=== PATIENT | male | born 1970 | race American Indian/Alaskan Native ===

== ENCOUNTER 2017-07-14 14:44 | Emergency (ER) | payer BC ==
[2017-07-14 16:04] VITALS: BP 130/88
[2017-07-14] MEDS ORDERED: NORCO 5/325 PO ONE (19:58)
[2017-07-14] MEDS ORDERED: FLEXERIL PO ONE (19:58)
--- NOTE | 2017-07-14 20:51 | XRay Report ---
FINAL REPORT PROCEDURE: XR FINGER(S) 2+V RT TECHNIQUE: Left 2nd finger, three views HISTORY: laceration, finger pain COMPARISON: No prior studies are available for comparison. FINDINGS: No fracture or dislocation is seen. No focal osseous lesion is identified. No radiopaque foreign body. IMPRESSION: No fracture or joint dislocation is identified
--- NOTE | 2017-07-14 22:33 | Emergency Department Report ---
- General Chief Complaint: Wound/Laceration Stated Complaint: RIGHT FINGER INJURY Source: patient Mode of arrival: Ambulatory Limitations: No Limitations - History of Present Illness Initial Comments: 46 year old male presents to ED with right 1st finger pain after window was closed on finger. patient has superficial lacerations/abrasions to right distal finger. patient states his tetanus is up to date. patient is stable, neurologically intact and in no acute distress. -: Sudden Location: other (right finger) Extremity Location: Right: Hand (right index finger) Patient Tetanus UTD: Yes Context: accidental Associated Symptoms: pain. denies: loss of feeling/numbness, suspect foreign body present, unable to move injured part, weakness followed by dizziness, nausea/vomiting, fever - Related Data Previous Rx's Medication Instructions Recorded Last Taken Type HYDROcodone/APAP 5-325 [[place] 1 - 2 each PO Q6HR PRN #10 tablet 05/08/15 Unknown Rx 5-325 mg TAB] traMADol [Ultram 50 MG tab] 50 mg PO Q6HR PRN #16 tablet 05/08/15 Unknown Rx Meloxicam [Mobic] 7.5 mg PO QDAY #5 tablet 07/14/17 Unknown Rx methOCARBAMOL [Robaxin TAB] 500 mg PO TID #15 tab 07/14/17 Unknown Rx Allergies Allergy/AdvReac Type Severity Reaction Status Date / Time No Known Allergies Allergy Unverified 05/08/15 07:58 ED Review of Systems ROS: Stated complaint: RIGHT FINGER INJURY Other details as noted in HPI Constitutional: denies: chills, fever Eyes: denies: eye pain, eye discharge, vision change ENT: denies: ear pain, throat pain Respiratory: denies: cough, shortness of breath, wheezing Cardiovascular: denies: chest pain, palpitations Endocrine: no symptoms reported Gastrointestinal: denies: abdominal pain, nausea, diarrhea Genitourinary: denies: urgency, dysuria Musculoskeletal: joint swelling, arthralgia. 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 - Surgical History Additional Surgical History: C4/5 FUSION/ L EFT ROTATOR CUFF/ BICEP TENDON/ RIGHT KNEE - Social History Smoking Status: Never Smoker - Medications Home Medications: Home Medications Medication Instructions Recorded Confirmed Last Taken Type HYDROcodone/APAP 5-325 [[place] 1 - 2 each PO Q6HR PRN #10 tablet 05/08/15 Unknown Rx 5-325 mg TAB] traMADol [Ultram 50 MG tab] 50 mg PO Q6HR PRN #16 tablet 05/08/15 Unknown Rx Meloxicam [Mobic] 7.5 mg PO QDAY #5 tablet 07/14/17 Unknown Rx methOCARBAMOL [Robaxin TAB] 500 mg PO TID #15 tab 07/14/17 Unknown Rx ED Physical Exam - General Limitations: No Limitations General appearance: alert, in no apparent distress - Head Head exam: Present: atraumatic, normocephalic - Eye Eye exam: Present: normal appearance, EOMI - ENT ENT exam: Present: normal exam, mucous membranes moist - Neck Neck exam: Present: normal inspection, full ROM - Respiratory Respiratory exam: Present: normal lung sounds bilaterally. Absent: respiratory distress, wheezes, rales - Cardiovascular Cardiovascular Exam: Present: regular rate, normal rhythm. Absent: systolic murmur, diastolic murmur, rubs, gallop - GI/Abdominal GI/Abdominal exam: Present: soft, normal bowel sounds. Absent: distended, tenderness, guarding, rebound - Rectal Rectal exam: Present: deferred - Extremities Exam Extremities exam: Present: normal inspection - Expanded Upper Extremity Exam Right General: Present: normal inspection Shoulder Exam: Present: normal inspection, full ROM Upper Arm exam: Present: normal inspection, full ROM Elbow exam: Present: normal inspection, full ROM Forearm Wrist exam: Present: normal inspection, full ROM Hand Wrist exam: Present: tenderness, swelling (right index finger), abrasion, ecchymosis. Absent: full ROM (limited ROM due to pain), dislocation, amputation , nail avulsion Vascular: Present: normal capillary refill, radial pulse. Absent: vascular compromise - Back Exam Back exam: Present: normal inspection, full ROM - Neurological Exam Neurological exam: Present: alert, oriented X3, normal gait - Psychiatric Psychiatric exam: Present: normal affect, normal mood - Skin Skin exam: Present: warm, dry, intact, normal color. Absent: rash ED Course Vital Signs 07/14/17 15:59 Temperature 99.2 F Pulse Rate 83 Respiratory 18 Rate Blood Pressure 130/88 O2 Sat by Pulse 96 Oximetry ED Medical Decision Making - Radiology Data Radiology results: report reviewed XR right finger No fracture or joint dislocation is identified. - Medical Decision Making 46 year old male presents to ED with right finger pain after slamming window on it. patient has no acute findings on imaging. patient has resolved pain after medications during ED visit. patient is stable ,neurologically intact and in no acute distress. Critical care attestation.: If time is entered above; I have spent that time in minutes in the direct care of this critically ill patient, excluding procedure time. ED Disposition Clinical Impression: Finger pain, right Disposition: [id number] TO HOME OR SELFCARE Is pt being admited?: No Does the pt Need Aspirin: No Condition: Stable Prescriptions: Meloxicam [Mobic] 7.5 mg PO QDAY #5 tablet methOCARBAMOL [Robaxin TAB] 500 mg PO TID #15 tab Referrals: PRIMARY CARE, [Primary Care Provider] - 3-5 Days Forms: Work/School Release Form(ED)
== END 2017-07-14 21:34 | disposition home or self-care (01) ==
LOC: ED 14:44
DX: M79.644 Pain in right finger(s) (principal); I10 Essential (primary) hypertension; D57.80 Other sickle-cell disorders without crisis
CPT/HCPCS: 99283